=== PATIENT | female | born 1975 | race Caucasian/White ===

== ENCOUNTER 2019-01-17 17:18 | Emergency (ER) | payer OTHER ==
[~2019-01-17] VITALS: Ht 160 cm; Wt 63.5 kg
[2019-01-17] MEDS ORDERED: CEPHALEXIN500 M1 PO (18:02)
== END 2019-01-17 18:38 | disposition home or self-care (01) ==
LOC: ED 17:18
DX: L72.3 Sebaceous cyst (principal)